=== PATIENT | female | born 2005 ===

== ENCOUNTER 2025-05-14 08:47 | Outpatient (REF) | payer BC, SELFPAY ==
--- NOTE | ~2025-05-14 | US_ITS ---
US EXTREMITY NON-VASCULAR LIMITED RIGHT Clinical information: NODULE RT GREAT TOE DORSAL MTP JOINT AFTER INJURY Comparison: None available. TECHNIQUE: Targeted ultrasound of the area of concern in the right first toe. FINDINGS: At the location of the clinical concern in the dorsal aspect of the first metatarsophalangeal joint, there is a 0.6 x 0.4 x 0.5 cm oval-shaped predominantly hypoechoic structure with a central hyperechoic component. No internal vascularity is demonstrated with color Doppler evaluation. US/US Extremity Nonvas Limited RT IMPRESSION: Clinical concern at the level of the first metatarsophalangeal joint correlates with a 0.6 cm cystic-appearing structure. No demonstrable internal vascularity. Given the history of recent trauma, this could represent a local hematoma, although other etiologies are not completely excluded. Electronically signed by: Kimberly Alanis MD 05/14/2025 12:57 PM EDT
--- OUTSIDE RECORDS SUMMARY | 2025-05-14 09:05 | XMS_ITS | Clinical Summary ---
Author Organization [facility] Address [address] [place] [phone] Phone Care Team Providers Care Thread Puller Name Role Phone Pcp, Unknown Primary Care Provider Unavailabl e Encounters Date Type Department Care Team Description 04/29/2025 Transcribe Orders Virtual Department [address] [place] [address] Kely Berg MD Pain, joint, ankle and foot, right (Primary Dx) from Last 3 Months Social History Tobacco Use Types Packs/Day Years Used Date Smoking Tobacco: Never Assessed Education Answer Date Recorded Are you interested in more education? Not on moni e 03/29/2024 Are you concerned about learning? Not on file 03/29/2024 No 03/29/2024 No 03/29/2024 Digital Access Answer Date Recorded No 03/29/2024 No 03/29/2024 Reliable internet access at home? Not on file 03/29/2024 Device with a working camera? Not on file Comments Unknown Sex and Gender Information Value Date Recorded Sex Assigned at Not on file Legal Sex Female 10:38 AM EDT Gender Identity Not on file Sexual Orientation Not on file Plan of Treatment Health Maintenance Due Date Last Done Comments MMR VACCINES (1 of 1 - Stand raymundo series) 2005 DEVELOPMENTAL/BEHAVIORAL SCR EENING (PHQ, PSC, or SWYC) 2007 COMBINED DTaP,Tdap,Td (1 - Tdap) 2011 DEPRESSION SCREENING 2016 SMOKING Hx and SMOKELESS TOB ACCO SCREENING 2017 VARICELLA VACCINES (1 of 2 - 13+ 2-dose series) 2017 HPV VACCINES (1 - 3-dose series) 2019 CHLAMYDIA SCREENING 2020 MENINGOCOCCAL VACCINES (B) ( 1 of 2 - Standard) 2020 ADOLESCENT UNIVERSAL LIPID SCREENING 2021 HEPATITIS C SCREENING 2022 HIV ONE-TIME SCREENING (18-6 5 YEARS) 2022 COVID-19 VACCINE ( - 2023-2 5 season) 2024 HEPATITIS A VACCINES Aged Out No long er eligible based on patient's age to complete this topic HIB VACCINES Aged Out No longer eligi ble based on patient's age to complete this topic MENINGOCOCCAL VACCINES (ACWY) Aged Out No longer eligible based on patient's age to complete this topic PNEUMOCOCCAL VACCINES (0-49 years) Aged Out No longer eligible based on patient's age to complete this topic Medical Devices Not on file Insurance PPO EPO PPO EPO [place] [address] [place] [address] [place] [place] [address] PPO EPO [facility] PPO EPO Member Subscriber Plan / Payer (Ef fective 2023-) Name:Megan Koehler Relation to Subscriber:Self Name:Megan Koehler Payer ID:[id number] (NAIC) Type:PPO Address: [facility] [id number] [place] [phone] Care Teams Thread Puller Relationship Specialty Start Date End Date Pcp, Unknown PCP - General 03/29/24 Additional Source Comments The information contained in this document represents components of the legal health record. It is not the complete legal health record.[facility]
== END 2025-05-14 08:48 | disposition home or self-care (01) ==
LOC: HO.UMASIMG 08:47
PROVIDERS: Visit Provider Student in an Organized Health Care Education/Training Program
DX: M25.571 Pain in right ankle and joints of right foot (principal)
CPT/HCPCS: 76882

== ENCOUNTER → 2025-05-14 11:30 | Outpatient (BNV) | payer BC, SELFPAY | PROVIDERS: Visit Provider Radiology Body Imaging | DX: R22.41 Localized swelling, mass and lump, right lower limb (principal) | CPT/HCPCS: 76882 ==